=== PATIENT | female | born 1985 | race Two or more races ===

== ENCOUNTER 2019-06-04 17:02 | Outpatient (CLI) | payer OTHER | END 2019-06-04 17:25 | disposition home or self-care (01) | LOC: LAB 17:02 | DX: J11.1 Influenza due to unidentified influenza virus with other respiratory manifestations (principal) ==

== ENCOUNTER 2023-03-18 14:21 | Emergency (ER) | payer OTHER ==
[~2023-03-18] VITALS: Ht 167.6 cm; Wt 54.0 kg
[2023-03-18] MEDS ORDERED: CRESTOR5 MG PO (15:03)
[2023-03-18 17:14] LABS: HEMATOCRIT 39.2 % (36.0-45.00); HEMOGLOBIN 13.2 g/dL (12.0-15.00); MEAN CELL VOLUME 90.8 fL (80.00-100.00); MEAN CORPUSCULAR HEMOGLOBIN 30.6 pg (27.00-32.0); MEAN CORPUSCULAR HGB CONC 33.6 g/dl (32.0-36.0); PLATELET COUNT 235 K/uL (150-450); RED BLOOD COUNT 4.32 M/uL (4.00-6.00); RED CELL DISTRIBUTION WIDTH 13.6 % (11.5-14.5)
[2023-03-18 17:32] LABS: CALCIUM 8.9 mg/dL (8.5-10.1); CREATININE SERUM 0.57 mg/dL (0.55-1.02); GFR 120.7; POTASSIUM 3.63 mEq/L (3.5-5.1)
[2023-03-18 17:51] LABS: PH,URINE 5.5 (5.0-8.0); URINE APPEARANCE Clear; URINE BILIRRUBIN Negative (NEGATIVE); URINE BLOOD Large; URINE COLOR Yellow; URINE GLUCOSE Negative (NEGATIVE); URINE LEUKOCYTE Negative; URINE NITRATE Negative; URINE PROTEIN Negative (NEGATIVE)
[2023-03-18 17:52] LABS: URINE BACTERIA 2207.4 uL (0.0-1933); URINE EPITHELIAL CELLS 27.6 uL (0.0-38.8); URINE RBC 2.5 uL (0.0-20.8); URINE WBC 7.5 uL (0.0-23.2)
== END 2023-03-19 01:20 | disposition home or self-care (01) ==
LOC: ER 14:21
PROVIDERS: Emergency Medicine
DX: R10.84 Generalized abdominal pain (principal); K52.9 Noninfective gastroenteritis and colitis, unspecified; Z88.1 Allergy status to other antibiotic agents